=== PATIENT | male | born 1995 | race Caucasian/White ===

== ENCOUNTER 2018-11-30 01:20 | Emergency (ER) | payer OTHER ==
[~2018-11-30] VITALS: Ht 180.3 cm; Wt 65.8 kg
[2018-11-30] MEDS ORDERED: BUTALB-APAP-CA1 EACH PO (02:34)
[2018-11-30 02:51] VITALS: BP 112/63
[2018-12-01] MEDS ORDERED: CLEOCIN HCL150 MG PO (10:25)
[2018-12-01] MEDS ORDERED: IBUPROFEN 600600 M1 PO (10:25)
== END 2018-11-30 02:51 | disposition home or self-care (01) ==
LOC: ER 01:20
DX: R51 Headache (principal); Z88.0 Allergy status to penicillin; Z91.048 Other nonmedicinal substance allergy status

== ENCOUNTER 2018-12-01 09:45 | Emergency (ER) | payer OTHER ==
[~2018-12-01] VITALS: Ht 180.3 cm; Wt 70.3 kg
[~2018-12-01 09:45] MED LIST: BUTALB-APAP-CA1 EACH PO
[2018-12-01] MEDS ORDERED: IBUPROFEN 600600 M1 PO (10:25)
[2018-12-01] MEDS ORDERED: CLEOCIN HCL150 MG PO (10:25)
[2018-12-01 10:42] VITALS: BP 120/85
== END 2018-12-01 10:42 | disposition home or self-care (01) ==
LOC: ER 09:45
DX: K02.9 Dental caries, unspecified (principal); F90.9 Attention-deficit hyperactivity disorder, unspecified type; Z91.048 Other nonmedicinal substance allergy status; Z88.0 Allergy status to penicillin

== ENCOUNTER 2018-12-05 00:16 | Emergency (ER) | payer OTHER ==
[~2018-12-05] VITALS: Ht 180.3 cm; Wt 72.6 kg
[~2018-12-05 00:16] MED LIST changes: +CLEOCIN HCL150 MG PO; +IBUPROFEN 600600 M1 PO
[2018-12-05] MEDS ORDERED: IBUPROFEN 600600 M1 PO (01:33)
[2018-12-05] MEDS ORDERED: ULTRAM 50MG TAB50 MG PO (01:33)
[2018-12-05 01:41] VITALS: BP 138/90
== END 2018-12-05 01:40 | disposition home or self-care (01) ==
LOC: ER 00:16
DX: K02.9 Dental caries, unspecified (principal); F90.9 Attention-deficit hyperactivity disorder, unspecified type; Z88.0 Allergy status to penicillin; Z88.8 Allergy status to other drugs, medicaments and biological substances

== ENCOUNTER 2019-02-02 18:31 | Emergency (ER) | payer OTHER ==
[~2019-02-02] VITALS: Ht 175.3 cm; Wt 68.0 kg
[~2019-02-02 18:31] MED LIST changes: +ULTRAM 50MG TAB50 MG PO
[2019-02-02 18:38] VITALS: BP 128/76
[2019-02-02] MEDS ORDERED: ULTRAM 50MG TAB50 MG PO (18:59)
[2019-02-02] MEDS ORDERED: IBUPROFEN 600600 M1 PO (18:59)
== END 2019-02-02 19:08 | disposition home or self-care (01) ==
LOC: ER 18:31
DX: K02.9 Dental caries, unspecified (principal); F90.9 Attention-deficit hyperactivity disorder, unspecified type; Z88.0 Allergy status to penicillin; Z91.048 Other nonmedicinal substance allergy status